=== PATIENT | male | born 1995 | race Caucasian/White ===

== ENCOUNTER 2017-10-31 03:17 | Emergency (ER) | payer OTHER ==
[2017-10-31] MEDS: LIDOCAINE 2% VISC 15 ML CUP PO (03:57)
== END 2017-10-31 06:12 | disposition home or self-care (01) ==
LOC: FTE 03:17
DX: T16.2XXA Foreign body in left ear, initial encounter (principal); F17.210 Nicotine dependence, cigarettes, uncomplicated; X58.XXXA Exposure to other specified factors, initial encounter; Y92.9 Unspecified place or not applicable
CPT/HCPCS: 99283; Z7502